=== PATIENT | male | born 1990 | race Caucasian/White ===

== ENCOUNTER → 2020-07-11 | Outpatient (CLI) | payer OTHER ==
[~2020-07-11] MED LIST: CEFD1CAP8 PO; OMEP1CAP73 PO; TAGA200T3 PO; [UNRECOGNIZED DRUG - CODE] PO
== END ==
LOC: M LABSMTC 11:13
PROVIDERS: ATTEND Anesthesiology
DX: Z01.812 Encounter for preprocedural laboratory examination (principal); Z20.822 Contact with and (suspected) exposure to COVID-19

== ENCOUNTER 2020-07-16 09:30 | Day surgery (SDC) | payer OTHER ==
[~2020-07-16] VITALS: Ht 177.8 cm; Wt 99.8 kg
[~2020-07-16 09:30] MED LIST changes: +LIDOCAINE 2% 100MG/5ML SDV (FOR ANES.) As Ordered ONE; +NS 1,000 ML IV ONE; +propofoL 200 MG/20 ML VIAL As Ordered ONE
[2020-07-16] MEDS ORDERED: PRED20TA PO (09:44)
[2020-07-16] MEDS ORDERED: propofoL 200 MG/20 ML VIAL As Ordered ONE (10:47)
--- NOTE | 2020-07-16 10:49 | ROOR ---
Patient Name: Art Ryan Procedure Date: 07/16/2020 10:27 AM Date of : 1990 Age: 30 Room: [facility] Gender: Male Note Status: Finalized Procedure: Upper Endoscopy + Biopsies Indications: Epigastric abdominal pain Providers: Shane Hall MD Referring MD: Jeanette Go Requesting Provider: Medicines: Monitored Anesthesia Care Complications: No immediate complications. Procedure: Pre-Anesthesia Assessment: - The heart rate, respiratory rate, oxygen saturations, blood pressure, adequacy of pulmonary ventilation, and response to care were monitored throughout the procedure. The Endoscope was introduced through the mouth, and advanced to the second part of duodenum. The upper GI endoscopy was accomplished without difficulty. The patient tolerated the procedure well. Findings: The Z-line was regular and was found 40 cm from the incisors. No other significant abnormalities were identified in a careful examination of the stomach. Biopsies were taken with a cold forceps in the gastric antrum for Helicobacter pylori testing. The exam of the duodenum was otherwise normal. Biopsies for histology were taken with a cold forceps in the first portion of the duodenum for evaluation of celiac disease. The exam was otherwise without abnormality. Impression: - Z-line regular, 40 cm from the incisors. - The examination was otherwise normal. - Biopsies were taken with a cold forceps for Helicobacter pylori testing. - Biopsies were taken with a cold forceps for evaluation of celiac disease. - The examination was otherwise normal. Recommendation: - Patient has a contact number available for emergencies. The signs and symptoms of potential delayed complications were discussed with the patient. Return to normal activities tomorrow. Written discharge instructions were provided to the patient. - Resume previous diet. - Discharge patient to home. - Follow an antireflux regimen. - Continue present medications. - Await pathology results. - Telephone GI clinic for pathology results in 1 week. - The findings and recommendations were discussed with the patient. Procedure Code(s): --- Professional --- 89119, Esophagogastroduodenoscopy, flexible, transoral; with biopsy, single or multiple Diagnosis Code(s): --- Professional --- R10.13, Epigastric pain CPT copyright 2019 [employer]. All rights reserved. The codes documented in this report are preliminary and upon functional consultant review may be revised to meet current compliance requirements. Shane Hall MD Shane Hall MD 07/16/2020 10:49:08 AM Electronically signed by Shane Hall MD Number of Addenda: 0 Note Initiated On: 07/16/2020 10:27 AM Estimated Blood Loss: Estimated blood loss: none.
--- NOTE | 2020-07-16 11:01 | ROOR ---
Patient Name: Art Ryan Procedure Date: 07/16/2020 10:28 AM Date of : 1990 Age: 30 Room: [facility] Gender: Male Note Status: Finalized Procedure: Total Colonoscopy to Cecum + ileoscopy Indications: Lower abdominal pain, Clinically significant diarrhea of unexplained origin, Rectal bleeding Providers: Shane Hall MD Referring MD: Jeanette Go Requesting Provider: Medicines: Monitored Anesthesia Care Complications: No immediate complications. Procedure: Pre-Anesthesia Assessment: - The heart rate, respiratory rate, oxygen saturations, blood pressure, adequacy of pulmonary ventilation, and response to care were monitored throughout the procedure. The Colonoscope was introduced through the anus and advanced to the terminal ileum, with identification of the appendiceal orifice and IC valve. The colonoscopy was performed without difficulty. The patient tolerated the procedure well. The quality of the bowel preparation was good. Findings: The perianal and digital rectal examinations were normal. Non-bleeding internal hemorrhoids were found during retroflexion. The hemorrhoids were small and Grade I (internal hemorrhoids that do not prolapse). No other significant abnormalities were identified in a careful examination of the remainder of the colon. The exam was otherwise without abnormality. The terminal ileum appeared normal. The exam was otherwise without abnormality. Impression: - Non-bleeding internal hemorrhoids. - The examination was otherwise normal. - The examined portion of the ileum was normal. - The examination was otherwise normal. - No specimens collected. - The exam was otherwise normal to the cecum. Recommendation: - Patient has a contact number available for emergencies. The signs and symptoms of potential delayed complications were discussed with the patient. Return to normal activities tomorrow. Written discharge instructions were provided to the patient. - High fiber diet. - Discharge patient to home. - Continue present medications. - Repeat colonoscopy at age 49 for screening purposes. - Return to referring physician. - The findings and recommendations were discussed with the patient. Procedure Code(s): --- Professional --- 94412, Colonoscopy, flexible; diagnostic, including collection of specimen(s) by brushing or washing, when performed (separate procedure) Diagnosis Code(s): --- Professional --- K64.0, First degree hemorrhoids R10.30, Lower abdominal pain, unspecified R19.7, Diarrhea, unspecified K62.5, Hemorrhage of anus and rectum CPT copyright 2019 [employer]. All rights reserved. The codes documented in this report are preliminary and upon certified professional coder review may be revised to meet current compliance requirements. Shane Hall MD Shane Hall MD 07/16/2020 11:01:47 AM Electronically signed by hSane Hall MD Number of Addenda: 0 Note Initiated On: 07/16/2020 10:28 AM Estimated Blood Loss: Estimated blood loss: none.
[2020-07-16 11:34] VITALS: BP 124/78
== END 2020-07-16 11:40 | disposition home or self-care (01) ==
LOC: M OPP 09:30
PROVIDERS: ATTEND Internal Medicine Gastroenterology
DX: K62.5 Hemorrhage of anus and rectum (principal); K64.0 First degree hemorrhoids; R10.30 Lower abdominal pain, unspecified; R19.7 Diarrhea, unspecified; R10.13 Epigastric pain; Z79.2 Long term (current) use of antibiotics; Z79.899 Other long term (current) drug therapy

== ENCOUNTER 2023-10-24 18:51 | Emergency (ER) | payer OTHER ==
[~2023-10-24] VITALS: Ht 177.8 cm; Wt 124.2 kg
[~2023-10-24 18:51] MED LIST changes: -CEFD1CAP8 PO; +CEFD1CAP9 PO; -LIDOCAINE 2% 100MG/5ML SDV (FOR ANES.) As Ordered ONE; -NS 1,000 ML IV ONE; +PRED20TA PO; -propofoL 200 MG/20 ML VIAL As Ordered ONE
[2023-10-24] MEDS ORDERED: FAMO20TA5 (20:22)
[2023-10-24 20:58] VITALS: BP 141/95; TEMP 98; O2SAT 97
== END 2023-10-24 21:07 | disposition home or self-care (01) ==
LOC: M ED 18:51
DX: J32.9 Chronic sinusitis, unspecified (principal); Z91.09 Other allergy status, other than to drugs and biological substances; Z79.52 Long term (current) use of systemic steroids; Z79.899 Other long term (current) drug therapy

== ENCOUNTER → 2023-10-26 | Outpatient (REF) | payer OTHER ==
[~2023-10-26] MED LIST changes: +FAMO20TA5
[2023-10-26 20:02] LABS: ALBUMIN 4.2 G/DL (3.2-5.2); ALKALINE PHOSPHATASE 71 U/L (46-116); ALT/SGPT 36 U/L (7.0-40); AST/SGOT < 8 U/L (<34); BILIRUBIN,TOTAL 0.8 MG/DL (0.3-1.2); BLOOD UREA NITROGEN 12 MG/DL (9-23); CALCIUM LEVEL 9.7 MG/DL (8.5-10.1); CARBON DIOXIDE LEVEL 28 MMOL/L (20-31); CHLORIDE LEVEL 105 MMOL/L (98-107); CREATININE FOR GFR 0.99 MG/DL (0.70-1.30); GLOMERULAR FILTRATION RATE > 60.0 (>60); GLUCOSE, FASTING 83 MG/DL (60-100); POTASSIUM SERUM 3.6 MMOL/L (3.5-5.1); SODIUM LEVEL 139 MMOL/L (136-145); TOTAL PROTEIN 7.2 G/DL (5.7-8.2)
[2023-10-26 20:04] LABS: THYROID STIMULATING HORMONE 2.022 uIU/ML (0.55-4.78)
[2023-10-26 20:05] LABS: BASO % 0.4 % (0.0-1.0); HEMATOCRIT 44.5 % (42.0-52.0); HEMOGLOBIN 15.2 g/dl (13.5-17.5); LYMPH # 2.9 10^3/uL (1.5-5.0); LYMPH % 30.3 % (24.0-44.0); MEAN CORPUSCULAR HEMOGLOBIN 31.1 pg (27.0-33.0); MEAN CORPUSCULAR HGB CONC 34.2 g/dl (32.0-36.5); MONO # 0.8 10^3/uL (0.0-0.8); NEUTROPHILS # 5.8 10^3/uL (1.5-8.5); NEUTROPHILS % 60.8 % (36.0-66.0); PLATELET COUNT, AUTOMATED 226 10^3/uL (150-450); RED BLOOD COUNT 4.89 10^6/uL (4.30-6.10); WHITE BLOOD COUNT 9.6 10^3/uL (4.0-10.0)
== END ==
LOC: M LAB REF 19:33
PROVIDERS: ATTEND Physician Assistant
DX: R09.82 Postnasal drip (principal)

== ENCOUNTER → 2023-10-28 | Outpatient (REF) | payer OTHER | LOC: M SFHCDERM 17:08 | PROVIDERS: ATTEND Nurse Practitioner Family | DX: T14.8XXA Other injury of unspecified body region, initial encounter (principal) ==

== ENCOUNTER → 2023-12-02 | Outpatient (CLI) | payer OTHER ==
[~2023-12-02] MED LIST changes: +GASTROGRAFIN SOLUTION 30ML As Ordered ONE; +ISOVUE-370 76% 100ML VIAL As Ordered ONE
== END ==
LOC: M RAD 15:12
PROVIDERS: ATTEND Nurse Practitioner Family
DX: C43.72 Malignant melanoma of left lower limb, including hip (principal); K76.0 Fatty (change of) liver, not elsewhere classified; R19.09 Other intra-abdominal and pelvic swelling, mass and lump
CPT/HCPCS: 71260; 73701; 74177; Q9963; Q9967

== ENCOUNTER → 2024-01-27 | Outpatient (CLI) | payer OTHER ==
[~2024-01-27] MED LIST changes: +ACET-683 PO; +DICY20TA20; +ESCITALOPRAM; -GASTROGRAFIN SOLUTION 30ML As Ordered ONE; +HYDR-643
== END ==
LOC: M RAD 08:39
PROVIDERS: ATTEND Otolaryngology
DX: R13.10 Dysphagia, unspecified (principal)
CPT/HCPCS: 70491; Q9967

== ENCOUNTER → 2024-02-14 | Outpatient (CLI) | payer OTHER ==
[~2024-02-14] MED LIST changes: +E-Z-GAS II EFFERVESCENT PACKET (SODIUM BICARB./CITRIC ACID/SIMETHICONE) As Ordered ONE; +E-Z-HD 98% w/w 340GM SUSP BTL As Ordered ONE; +E-Z-PAQUE 96% w/w SUSP 176GM BTL As Ordered ONE; -ISOVUE-370 76% 100ML VIAL As Ordered ONE
== END ==
LOC: M RAD 07:28
PROVIDERS: ATTEND Otolaryngology
DX: R13.10 Dysphagia, unspecified (principal)

== ENCOUNTER → 2024-04-27 | Outpatient (CLI) | payer OTHER ==
[~2024-04-27] MED LIST changes: -E-Z-GAS II EFFERVESCENT PACKET (SODIUM BICARB./CITRIC ACID/SIMETHICONE) As Ordered ONE; -E-Z-HD 98% w/w 340GM SUSP BTL As Ordered ONE; -E-Z-PAQUE 96% w/w SUSP 176GM BTL As Ordered ONE; +FLUO-290; +KETO2CR
== END ==
LOC: M RAD 07:38
PROVIDERS: ATTEND Physician Assistant Surgical
DX: M75.32 Calcific tendinitis of left shoulder (principal); S43.432A Superior glenoid labrum lesion of left shoulder, initial encounter; Y93.9 Activity, unspecified; Y92.9 Unspecified place or not applicable

== ENCOUNTER 2024-05-04 19:15 | Emergency (ER) | payer OTHER ==
[~2024-05-04] VITALS: Ht 177.8 cm; Wt 127.3 kg
[2024-05-04] MEDS ORDERED: ACET-897 PO (22:55)
[2024-05-04] MEDS: IPRATROPIUM 0.5MG/ALBUTEROL 2.5MG INH SOL UD 3ML (DUONEB) NEB ONE (22:58)
[2024-05-04] MEDS: ACETAMINOPHEN 325 MG TAB PO ONE (22:59)
[2024-05-05 00:29] VITALS: BP 148/95; TEMP 99.7; O2SAT 99
[2024-05-05] MEDS ORDERED: DOXY-441 PO (00:41)
[2024-05-05] MEDS ORDERED: PRED20TA PO (00:41)
[2024-05-05] MEDS: predniSONE 20 MG TAB PO ONE (01:00)
[2024-05-05] MEDS: DOXYCYCLINE HYCLATE 100MG TABLET PO ONE (01:00)
== END 2024-05-05 00:56 | disposition home or self-care (01) ==
LOC: M ED 19:15
DX: J18.9 Pneumonia, unspecified organism (principal); B34.2 Coronavirus infection, unspecified; K21.9 Gastro-esophageal reflux disease without esophagitis; F32.A Depression, unspecified; Z91.09 Other allergy status, other than to drugs and biological substances; Z79.1 Long term (current) use of non-steroidal anti-inflammatories (NSAID); Z79.2 Long term (current) use of antibiotics; Z79.52 Long term (current) use of systemic steroids
CPT/HCPCS: 71046; 87486; 87581; 87633; 87798; 99284; J7512

== ENCOUNTER 2024-06-08 20:21 | Emergency (ER) | payer OTHER ==
[~2024-06-08] VITALS: Ht 177.8 cm; Wt 128.6 kg
[~2024-06-08 20:21] MED LIST changes: +ACET-897 PO; +DOXY-441 PO
[2024-06-08 20:34] VITALS: TEMP 98.4
[2024-06-08 22:00] VITALS: BP 131/84; O2SAT 97
== END 2024-06-08 23:25 | disposition home or self-care (01) ==
LOC: M ED 20:21
DX: J06.9 Acute upper respiratory infection, unspecified (principal); Z11.52 Encounter for screening for COVID-19; Z85.828 Personal history of other malignant neoplasm of skin

== ENCOUNTER → 2024-07-17 | Outpatient (CLI) | payer OTHER ==
[~2024-07-17] MED LIST changes: +AZIT-12 PO
== END ==
LOC: M PLARAD 07:36
PROVIDERS: ATTEND Nurse Practitioner Women's Health
DX: C43.72 Malignant melanoma of left lower limb, including hip (principal)
CPT/HCPCS: 78816; A9552

== ENCOUNTER 2024-07-27 10:45 | Outpatient (RCR) | payer OTHER ==
[2024-08-02] MEDS ORDERED: NOXI1TAB PO (08:19)
== END 2024-07-31 ==
LOC: M PT 10:45
PROVIDERS: ATTEND Internal Medicine Hematology & Oncology
DX: I89.0 Lymphedema, not elsewhere classified (principal)

== ENCOUNTER 2024-08-11 09:15 | Outpatient (RCR) | payer OTHER ==
[~2024-08-11 09:15] MED LIST changes: +NOXI1TAB PO
[2024-08-23] MEDS ORDERED: META0.52 PO (13:30)
== END 2024-08-30 ==
LOC: M PT 09:15
PROVIDERS: ATTEND Internal Medicine Hematology & Oncology
DX: I89.0 Lymphedema, not elsewhere classified (principal)

== ENCOUNTER → 2024-11-14 | Outpatient (CLI) | payer OTHER ==
[~2024-11-14] MED LIST changes: +META0.52 PO
== END ==
LOC: M RAD 14:57
PROVIDERS: ATTEND Registered Nurse
DX: M25.562 Pain in left knee (principal)

== ENCOUNTER → 2025-01-10 | Outpatient (CLI) | payer OTHER ==
[~2025-01-10] MED LIST changes: +ATIV1TAB7 PO; +CLAR10CA3 PO; +ISOVUE-370 76% 100 ML VIAL As Ordered ONE; +PROHANCE 279.3MG/ML 15ML VIAL As Ordered ONE; +PROHANCE 279.3MG/ML 5ML VIAL As Ordered ONE
== END ==
LOC: M RAD 09:47
DX: C43.9 Malignant melanoma of skin, unspecified (principal)
CPT/HCPCS: 70491; 70553; 71260; 74177; A9576; Q9967

== ENCOUNTER 2025-02-07 09:48 | Outpatient (RCR) | payer OTHER ==
[~2025-02-07 09:48] MED LIST changes: -ISOVUE-370 76% 100 ML VIAL As Ordered ONE; -PROHANCE 279.3MG/ML 15ML VIAL As Ordered ONE; -PROHANCE 279.3MG/ML 5ML VIAL As Ordered ONE
== END 2025-03-02 ==
LOC: M PT 09:48
PROVIDERS: ATTEND Internal Medicine Hematology & Oncology
DX: I89.0 Lymphedema, not elsewhere classified (principal)